=== PATIENT | male | born 1985 | race Caucasian/White ===

== ENCOUNTER 2016-11-28 19:18 | Emergency (ER) | payer OTHER ==
[2016-11-28] MEDS: MORPHINE SULFATE 10 MG/ML SYRINGE IM STA ×2 (19:40→21:23)
--- NOTE | 2016-11-28 19:50 | XR ---
EXAMINATION TYPE: XR finger LT DATE OF EXAM: 11/28/2016 7:38 PM COMPARISON: NONE HISTORY: Cutting injury with pain TECHNIQUE: 3 views of left third finger are acquired. FINDINGS: There is soft tissue defect as well as acute displaced comminuted fracture through distal o ne third of the distal left third phalanx . Largest fracture fragment is 7 mm and volarly displaced. Joint spaces are preserved. Focal soft tis moni swelling without radiodense foreign body is noted. IMPRESSION: There is acute open comminuted fracture through distal one third of the distal phalanx th ird finger left hand. (Initial encounter open type post traumatic fracture)
[2016-11-28] MEDS ORDERED: CEPHALEXIN 500 MG CAP PO STA (22:01)
--- NOTE | 2016-11-28 22:10 | ED ---
Upper Extremity HPI - General Chief Complaint: Skin/Abscess/Foreign Body Stated Complaint: Finger injury Time Seen by Provider: 11/28/16 19:24 Source: patient Mode of arrival: ambulatory Limitations: no limitations - History of Present Illness Initial Comments: Patient is a 31-year-old left-handed white male presenting to the emergency department with complaints of left middle finger laceration. Patient states he was lifting a hoist when it dropped and landed on his hand. Patient states that when no hoist fell on his hand he quickly pulled it back and sustained a large laceration to his left middle finger. Onset of injury less than 30 minutes prior to arrival. Patient is currently complaining of severe throbbing pain to his left middle finger rated 10 out of 10. No relieving or exacerbating factors. Patient denies previous injury or surgery to his left upper extremity. Patient states he wrapped his hand in a towel prior to arrival but didn't take any pain medication. Patient states he has had a tetanus shot within the last 5 years. No history of recent illness, fevers, nausea, vomiting, shortness breath, chest pain, or abdominal pain. MD Complaint: Injury to:: left, finger (Third digit) Onset/Timin -: minutes(s) Other Injuries: none Handedness: left Place: outdoors Severity scale (1-10): 10 Improves With: none Worsens With: none Context: crush Associated Symptoms: denies other symptoms Treatments Prior to Arrival: bandage - Related Data Previous Rx's Medication Instructions Recorded Cephalexin [Keflex] 500 mg PO Q6HR #28 cap 11/28/16 HYDROcodone/APAP 5-325MG [[place] 1 tab PO Q4HR PRN #20 tab 11/28/16 5-325] Allergies Allergy/AdvReac Type Severity Reaction Status Date / Time No Known Allergies Allergy Verified 11/28/16 19:21 Review of Systems ROS Statement: Those systems with pertinent positive or pertinent negative responses have been documented in the HPI. ROS Other: All systems not noted in ROS Statement are negative. Past Medical History Past Medical History: Asthma History of Any Multi-Drug Resistant Organisms: None Reported Past Surgical History: Hernia Repair, Tonsillectomy Past Psychological History: No Psychological Hx Reported Smoking Status: Current every day smoker Past Alcohol Use History: Occasional Past Drug Use History: Marijuana General Exam Limitations: no limitations General appearance: alert, in distress Head exam: Present: atraumatic, normocephalic, normal inspection Eye exam: Present: normal appearance ENT exam: Present: normal exam, mucous membranes moist Neck exam: Present: normal inspection, full ROM. Absent: tenderness, lymphadenopathy Respiratory exam: Present: normal lung sounds bilaterally. Absent: respiratory distress, wheezes, rales, rhonchi, stridor Cardiovascular Exam: Present: normal rhythm, tachycardia, normal heart sounds. Absent: systolic murmur GI/Abdominal exam: Present: soft, normal bowel sounds. Absent: tenderness Left Forearm Wrist exam: Present: normal inspection, full ROM. Absent: tenderness, swelling Hand Wrist exam: Present: tenderness, swelling, laceration, ecchymosis, subungual hematoma, other (Laceration to left middle finger with subungual hematoma associated with tenderness and swelling.). Absent: full ROM ( Decreased range of motion to left middle finger) Neuro motor exam: Present: wrist extension intact, thumb opposition intact, thumb IP flexion intact, thumb adduction intact Neurosensory exam: Present: 2-point discrimination, radial nerve intact, ulnar nerve intact, median nerve intact Vascular: Present: radial pulse, brachial pulse, ulnar pulse. Absent: vascular compromise Neurological exam: Present: alert, oriented X3, normal gait, other (No focal deficits noted.) Psychiatric exam: Present: normal affect, normal mood Skin exam: Present: warm, dry, normal color Course Vital Signs 11/28/16 11/28/16 11/28/16 19:20 21:21 22:00 Temperature 98.2 F 98 F 98 F Pulse Rate 105 H 89 88 Respiratory 20 18 18 Rate Blood Pressure 192/102 136/100 140/89 O2 Sat by Pulse 97 97 97 Oximetry Procedures - Laceration Laceration #1 Consent Obtained: verbal consent Indication: laceration Site: upper extremity Size (cm): 4 Description: avulsion, irregular, contaminated Depth: simple, single layer Anesthetic Used: lidocaine 1% Anesthesia Technique: local infiltration, nerve block Amount (mls): 6 Pre-repair: wound explored, irrigated extensively, deep structures intact, foreign body removed, wound margins revised Type of Sutures: nylon Size of Sutures: 4-0 (4 sutures), 5-0 (9) Technique: simple, interrupted Patient Tolerated Procedure: well, no complications Medical Decision Making - Medical Decision Making Patient is a 31-year-old male presenting to the emergency department with acute traumatic displaced fracture through the distal aspect of the third distal phalanx of the left hand, 4 cm laceration to third distal phalanx of the left hand, and subungual hematoma to the nailbed of third phalanx left hand. Laceration repaired without complications. Patient tolerated well with pain medication and digital nerve block. Left middle finger placed in splint. Patient instructed on wound care and splint care. Patient instructed to follow- up with orthopedic service. Patient instructed to return to the emergency department with new or worsening symptoms. Patient agrees to plan of care. Discharge instructions and return parameters reviewed. - Radiology Data Radiology results: report reviewed X-ray left third finger: Soft tissue defect as well as acute displaced comminuted fracture through distal one third of the distal left third phalanx. Largest fracture fragment is 7 mm and volarly displaced. Joint spaces are preserved. Focal soft tissue swelling without radiodense foreign body is noted. As read by radiologist, . Disposition Clinical Impression: Laceration of middle finger, Subungual hematoma of finger of left hand, Fracture, finger, distal phalanx Disposition: HOME SELF-CARE Condition: Good Instructions: Finger Laceration (ED), Care For Your Stitches (ED), Splint Care (ED), Finger Fracture (ED) Additional Instructions: Postop wound care: Keep wound dry and clean for 24 hours; if dressing accidentally becomes wet, chains dressing immediately. Gently clean the edges of the wound daily with a cotton swab saturated with peroxide to remove crust. Return immediately if signs of infection occur such as redness or red streaks progressing up and extremity, increasing pain, swelling, or fevers. Finish oral antibiotics as prescribed. Please return for suture removal in 10 days or sooner if complications. Follow-up with orthopedic service on Wednesday as directed. Please return to the emergency department if symptoms do not improve or get worse. Prescriptions: Cephalexin [Keflex] 500 mg PO Q6HR #28 cap HYDROcodone/APAP 5-325MG [[place] 5-325] 1 tab PO Q4HR PRN #20 tab PRN Reason: Pain Referrals: None,Stated [Primary Care Provider] - 1-2 days Ted Damon MD [STAFF PHYSICIAN] - 1-2 days Time of Disposition: 22:09
[2016-11-28 22:13] VITALS: RESP 18; TEMP 98
[2016-11-28 22:14] VITALS: BP 140/89; PULSE 88
--- NOTE | 2016-11-28 22:24 | XR ---
FINGER, 3 VIEWS INDICATION: Left third finger injury, pain COMPARISON: None. FINDINGS: PA, oblique, and lateral views of the left third and fourth fingers are obtained. There is an acute traumatic displaced transverse fracture through the distal aspect of the third distal phalanx with one shaft width anterior displacement of the distal fragment and 5 mm overriding. There is soft tissue swelling at the tip of the third finger. The fourth digit appears intact. There is no articular malalignment or dislocation. IMPRESSION: 1. Acute traumatic displaced fracture through the distal aspect of the third distal phalanx.
== END 2016-11-28 22:36 | disposition home or self-care (01) ==
LOC: EC 19:18
DX: S62.633A Displaced fracture of distal phalanx of left middle finger, initial encounter for closed fracture (principal); W45.8XXA Other foreign body or object entering through skin, initial encounter; F17.200 Nicotine dependence, unspecified, uncomplicated; S61.223A Laceration with foreign body of left middle finger without damage to nail, initial encounter
CPT/HCPCS: 73140; 99283; 12042; 96372; J2270

== ENCOUNTER 2017-03-16 20:23 | Emergency (ER) | payer OTHER ==
[2017-03-16] MEDS ORDERED: ONDANSETRON ODT 4 MG TAB PO STA (21:44)
[2017-03-16] MEDS ORDERED: ACETAMINOPHEN TAB 500 MG TAB PO STA (21:44)
[2017-03-16] MEDS ORDERED: IPRATROPIUM-ALBUTEROL 3 ML NEB INHALATION STA (21:44)
--- NOTE | 2017-03-16 21:54 | ED ---
URI HPI - General Chief Complaint: Upper Respiratory Infection Stated Complaint: Chest Pain Time Seen by Provider: 03/16/17 21:37 Source: patient, RN notes reviewed Mode of arrival: wheelchair Limitations: no limitations - History of Present Illness Initial Comments: This is a 31-year-old male presents emergency Department chief complaint cough and cold-like symptoms since . Patient states he initially that he decided ALLERGIES because this started after working outside cutting grass. Patient states his nose and states swelled up and felt congested. Patient states that he's having trouble breathing through his left nostril but states sometimes it is his right. Patient had fever and chills at home. Patient states that he has tried some cough and cold moments [id number] with no relief. Patient states his cough is not productive and he has some discomfort with deep inspiration. Patient states that he feels along the sternum. Patient states it does not radiate to his back. Patient states he is a smoker and has a history of asthma. Patient states she's had some nausea that started today with the drainage. - Related Data Previous Rx's Medication Instructions Recorded Albuterol Sulfate [Proair Hfa] 1 - 2 puff INHALATION Q4HR PRN #1 03/16/17 inhaler Levofloxacin [Levaquin] 500 mg PO DAILY #10 tab 03/16/17 methylPREDNISolone [Medrol Dose 4 mg PO DIRECTED #1 pack 03/16/17 Pack] Allergies Allergy/AdvReac Type Severity Reaction Status Date / Time No Known Allergies Allergy Verified 03/16/17 20:42 Review of Systems ROS Statement: Those systems with pertinent positive or pertinent negative responses have been documented in the HPI. ROS Other: All systems not noted in ROS Statement are negative. Past Medical History Past Medical History: Asthma History of Any Multi-Drug Resistant Organisms: None Reported Past Surgical History: Hernia Repair, Tonsillectomy Past Psychological History: No Psychological Hx Reported Smoking Status: Current every day smoker Past Alcohol Use History: Occasional Past Drug Use History: Marijuana General Exam Limitations: no limitations General appearance: alert, in no apparent distress Eye exam: Present: normal appearance, PERRL, EOMI. Absent: scleral icterus, conjunctival injection, periorbital swelling ENT exam: Present: mucous membranes moist, TM's normal bilaterally, normal external ear exam, other (Mild swelling noted of the left nare). Absent: normal exam, normal oropharynx (Postnasal drainage) Neck exam: Present: normal inspection, full ROM. Absent: tenderness, meningismus, lymphadenopathy Respiratory exam: Present: wheezes. Absent: normal lung sounds bilaterally, respiratory distress, rales, rhonchi, stridor Cardiovascular Exam: Present: normal rhythm, tachycardia, normal heart sounds. Absent: systolic murmur, diastolic murmur, rubs, gallop, clicks GI/Abdominal exam: Present: soft, normal bowel sounds. Absent: distended, tenderness, guarding, rebound, rigid Course Vital Signs 03/16/17 03/16/17 03/16/17 20:39 22:00 22:11 Temperature 100.8 F H Pulse Rate 108 H 100 102 H Respiratory 18 Rate Blood Pressure 131/69 O2 Sat by Pulse 96 Oximetry Medical Decision Making - Medical Decision Making 31-year-old male presented for cough and cold like symptoms. Patient has low- grade temp here in emergency prior. Chest x-ray shows mild atelectasis type changes does favor represent early pneumonia. Patient be treated for possible early pneumonia versus and buttocks year patient be discharged on antibiotics steroids and inhaler. Return parameters were discussed. I did discuss close follow-up with PCP. Disposition Clinical Impression: Pneumonia Disposition: HOME SELF-CARE Condition: Stable Instructions: Pneumonia (ED) Additional Instructions: Please return to the Emergency Department if symptoms worsen or any other concerns. Prescriptions: Albuterol Sulfate [Proair Hfa] 1 - 2 puff INHALATION Q4HR PRN #1 inhaler PRN Reason: difficulty in breathing Levofloxacin [Levaquin] 500 mg PO DAILY #10 tab methylPREDNISolone [Medrol Dose Pack] 4 mg PO DIRECTED #1 pack Referrals: None,Stated [Primary Care Provider] - 1-2 days Time of Disposition: 22:29
--- NOTE | 2017-03-16 22:14 | XR ---
EXAMINATION TYPE: XR chest 2V DATE OF EXAM: 03/16/2017 COMPARISON: NONE HISTORY: Cough TECHNIQUE: Frontal and lateral views of the chest are obtained. FINDINGS: Heart and mediastinum are normal. Lungs are clear of consolidation. There is minimal linea r density in the left midlung. There is no pleural effusion. Bony thorax is intact. IMPRESSION: Mild subsegmental atelectasis in the left midlung. Normal heart.
[2017-03-16] MEDS ORDERED: LEVOFLOXACIN 500 MG TAB PO STA (22:29)
[2017-03-16 22:44] VITALS: BP 133/66; PULSE 98; RESP 20; TEMP 100
== END 2017-03-16 22:43 | disposition home or self-care (01) ==
LOC: EC 20:23
DX: J18.9 Pneumonia, unspecified organism (principal); R22.0 Localized swelling, mass and lump, head; R09.81 Nasal congestion; R11.0 Nausea; R00.0 Tachycardia, unspecified; F17.200 Nicotine dependence, unspecified, uncomplicated
CPT/HCPCS: 71020; 93005; 94640; 99283